=== PATIENT | female | born 1995 | race Caucasian/White ===

== ENCOUNTER 2024-09-25 00:12 | Emergency (ER) | payer SELFPAY ==
[~2024-09-25] VITALS: Ht 167.6 cm; Wt 88.0 kg
[2024-09-25 00:28] VITALS: TEMP 36.8; O2SAT 99
[2024-09-25] MEDS: ACETAMINOPHEN 500MG TABLET PO ONE (01:55)
[2024-09-25] MEDS: LIDOCAINE 5% PATCH TOP SCH ×2 (01:55→01:56)
[2024-09-25] MEDS ORDERED: LIDO-53 TP (02:20)
[2024-09-25] MEDS ORDERED: ACET-2708 MT (02:20)
[2024-09-25 03:10] VITALS: BP 117/77; PULSE 100; RESP 20; O2SAT 100
== END 2024-09-25 03:52 | disposition home or self-care (01) ==
LOC: ER 00:12
DX: O9A.213 Injury, poisoning and certain other consequences of external causes complicating pregnancy, third trimester (principal); S82.891A Other fracture of right lower leg, initial encounter for closed fracture; O12.03 Gestational edema, third trimester; Z88.0 Allergy status to penicillin; Z85.41 Personal history of malignant neoplasm of cervix uteri; Z3A.30 30 weeks gestation of pregnancy; Z98.890 Other specified postprocedural states; X50.9XXA Other and unspecified overexertion or strenuous movements or postures, initial encounter; Y93.89 Activity, other specified; Y92.89 Other specified places as the place of occurrence of the external cause; Y99.8 Other external cause status
CPT/HCPCS: 99284; 29515; 73610; A6449